=== PATIENT | male | born 1995 | race Two or more races ===

== ENCOUNTER 2016-12-16 03:48 | Emergency (ER) | payer OTHER ==
[~2016-12-16] VITALS: Ht 172.7 cm; Wt 71.7 kg
[~2016-12-16 03:48] MED LIST: NOHOMEMEDS
[2016-12-16] MEDS ORDERED: CLARITIN10 MG PO (05:11)
[2016-12-16] MEDS ORDERED: PERMETHRIN118 ML TP ×2 (05:11→05:26)
[2016-12-16] MEDS ORDERED: BENADRYL25 MG PO (05:11)
[2016-12-16 05:28] VITALS: BP 118/61
== END 2016-12-16 05:28 | disposition home or self-care (01) ==
LOC: EME 03:48
DX: R21 Rash and other nonspecific skin eruption (principal); M25.511 Pain in right shoulder; F17.200 Nicotine dependence, unspecified, uncomplicated
CPT/HCPCS: 99281; 99283

== ENCOUNTER 2017-09-01 05:06 | Emergency (ER) | payer OTHER ==
[~2017-09-01] VITALS: Ht 172.7 cm; Wt 69.8 kg
[~2017-09-01 05:06] MED LIST changes: +BENADRYL25 MG PO; +CLARITIN10 MG PO; +PERMETHRIN118 ML TP
[2017-09-01] MEDS ORDERED: FLEXERIL10 MG PO (09:35)
[2017-09-01 10:29] VITALS: BP 132/47
== END 2017-09-01 10:28 | disposition home or self-care (01) ==
LOC: EME 05:06
DX: S80.12XA Contusion of left lower leg, initial encounter (principal); V49.50XA Passenger injured in collision with unspecified motor vehicles in traffic accident, initial encounter; F17.200 Nicotine dependence, unspecified, uncomplicated
CPT/HCPCS: 73590; 99281; 99284